=== PATIENT | female | born 1995 | race Asian ===

== ENCOUNTER 2017-02-25 10:14 | Emergency (ER) | payer BC ==
[~2017-02-25] VITALS: Ht 165.1 cm; Wt 76.8 kg
[2017-02-25 10:26] VITALS: BP 134/80
[2017-02-25] MEDS ORDERED: LEVA15HF4 INH (10:46)
== END 2017-02-25 13:30 | disposition home or self-care (01) ==
LOC: ED 13:00
DX: M79.671 Pain in right foot (principal); M79.675 Pain in left toe(s); J45.909 Unspecified asthma, uncomplicated
CPT/HCPCS: 29515; 99284